=== PATIENT | male | born 1980 | race Native Hawaiian/Other Pacific Islander ===

== ENCOUNTER 2017-12-28 09:18 | Emergency (ER) | payer BC ==
[~2017-12-28] VITALS: Ht 180.3 cm; Wt 74.8 kg
[2017-12-28 09:24] VITALS: TEMP 98.4
[2017-12-28 09:58] LABS: PLATELET COUNT 228 K/uL (142-355)
[2017-12-28 10:09] LABS: POTASSIUM 3.9 mmol/L (3.6-5.2); SODIUM 134 mmol/L (136-145)
[2017-12-28 11:13] VITALS: BP 141/89
== END 2017-12-28 11:25 | disposition home or self-care (01) ==
LOC: ED 09:18
PROVIDERS: Family Medicine
DX: R42 Dizziness and giddiness (principal); R00.0 Tachycardia, unspecified; E86.0 Dehydration
CPT/HCPCS: 36415; 80053; 82550; 82553; 84484; 85027; 93005; 96360; 99284